=== PATIENT | female | born 1950 | race Two or more races ===

== ENCOUNTER 2019-01-04 11:21 | Inpatient (IN) | payer OTHER ==
[~2019-01-04] VITALS: Ht 154.9 cm; Wt 45.4 kg
[2019-01-11] MEDS ORDERED: KEPPRA750 MG PO (12:43)
[2019-01-11] MEDS ORDERED: INDERAL LA120 MG PO (12:43)
[2019-01-11] MEDS ORDERED: ARICEPT10 MG PO (12:43)
[2019-01-11] MEDS ORDERED: DILANTIN PO (12:43)
[2019-01-11] MEDS ORDERED: NAMENDA10 MG PO (12:43)
[2019-01-11] MEDS ORDERED: HORIZANT600 MG PO (12:44)
[2019-01-11] MEDS ORDERED: CLONAZEPAM0.5 MG PO (12:44)
[2019-01-11] MEDS ORDERED: ZANTAC300 MG PO (12:44)
[2019-01-11] MEDS ORDERED: PRILOSEC OTC20 MG PO (12:44)
[2019-01-11] MEDS ORDERED: PLAVIX75 MG PO (12:44)
[2019-01-11] MEDS ORDERED: FOSAMAX70 MG PO (12:45)
[2019-01-11] MEDS ORDERED: INTEGRA CAPSUL1 EACH PO (12:45)
[2019-01-31] MEDS ORDERED: PHENYTOIN SODI100 MG PO (14:37)
== END 2019-02-01 11:16 | disposition home or self-care (01) | DRG 349 ==
LOC: EDSTATUS 01-11 10:45 → ADM 01-11 10:45 → SURH 01-11 10:45 → O/R 01-31 09:46 → SURG 01-31 16:00
PROVIDERS: ADMIT Colon & Rectal Surgery
PROC: 0DUR07Z Supplement Anal Sphincter with Autologous Tissue Substitute, Open Approach (ICD-10-PCS; 2019-01-31)
PROC: 0DJD8ZZ Inspection of Lower Intestinal Tract, Via Natural or Artificial Opening Endoscopic (ICD-10-PCS; 2019-01-31)
PROC: 0DBP7ZZ Excision of Rectum, Via Natural or Artificial Opening (ICD-10-PCS; principal; 2019-01-31 11:00)
DX: K62.3 Rectal prolapse (principal); R15.9 Full incontinence of feces; K63.89 Other specified diseases of intestine; I10 Essential (primary) hypertension; E03.8 Other specified hypothyroidism